=== PATIENT | male | born 1960 | race African-American/Black ===

== ENCOUNTER 2022-03-15 03:13 | Inpatient (IN) | payer OTHER ==
[2022-03-15 04:27] LABS: INR 1.28 (0.83-1.09); PROTHROMBIN TIME (PATIENT) 14.7 SEC (9.7-13.0)
[2022-03-15 04:33] LABS: BLOOD UREA NITROGEN 38.6 mg/dL (7-18); CALCIUM 8.9 mg/dL (8.5-10.1)
[2022-03-15 04:36] LABS: CREATININE 2.2 mg/dL (0.55-1.3)
[2022-03-15 04:38] LABS: BILIRUBIN,TOTAL 0.7 mg/dL (0.2-1)
[2022-03-15 04:41] LABS: N-TERMINAL BNP 12538.4 pg/ml (5-125)
[2022-03-15] MEDS ORDERED: FUROSEMIDE 40 MG/4 ML INJECTABLE VIAL IVPUSH ONE ×2 (05:01→18:37)
[2022-03-15] MEDS ORDERED: FUROSEMIDE 40 MG/4 ML INJECTABLE VIAL ONE ×2 (05:05→19:13)
[2022-03-15 06:17] LABS: BASO % 0.6 % (0-2.0); EOS % 5.1 % (0-4.5); HEMATOCRIT 51.9 % (35.4-49); HEMOGLOBIN 17.3 GM/dL (11.7-16.9); LYMPH % 19.8 % (8-40); MCH 32.9 pg (25.7-33.7); MCHC 33.4 g/dl (32.0-35.9); MEAN CELL VOLUME 98.6 fl (80-96); MEAN PLT VOLUME 10.1 fl (7.5-11.1); MONO % 8.4 % (3.8-10.2); NEUT % 66.1 % (42.8-82.8); PLATELET COUNT 236 10^3/uL (134-434); RBC 5.27 M/mm3 (4.00-5.60); WHITE BLOOD COUNT 7.1 K/mm3 (4.0-10.0)
[2022-03-15] MEDS ORDERED: NIFEdipine E.R. 30 MG TABLET PO ONE ×2 (08:28→09:09)
[2022-03-15] MEDS ORDERED: LISINOPRIL 5 MG TABLET PO ONE (08:29)
[2022-03-15] MEDS ORDERED: LISINOPRIL 5 MG TABLET ONE (09:09)
[2022-03-15] MEDS ORDERED: ALBUTEROL SO4 HFA INHALER IH PRN (10:20)
[2022-03-15] MEDS: APIXABAN 5 MG TABLET PO SCH ×2 (11:32→22:07)
[2022-03-15] MEDS: METOPROLOL TARTRATE 50 MG TABLET (FP) PO SCH ×2 (11:32→22:07)
[2022-03-15] MEDS ORDERED: METOPROLOL TARTRATE 50 MG TABLET (FP) ONE ×2 (11:33→22:04)
[2022-03-15] MEDS ORDERED: APIXABAN 5 MG TABLET ONE ×2 (11:33→22:03)
[2022-03-15] MEDS: TIOTROPIUM BROMIDE 2.5 MCG (SPIRIVA) RESPIMAT INHALER IH SCH (11:42)
[2022-03-16] MEDS ORDERED: FUROSEMIDE 40 MG/4 ML INJECTABLE VIAL ONE (06:05)
[2022-03-16 07:57] LABS: ALBUMIN 3.7 g/dl (3.4-5.0); BLOOD UREA NITROGEN 41.2 mg/dL (7-18); CALCIUM 8.6 mg/dL (8.5-10.1); MAGNESIUM 2.2 mg/dL (1.8-2.4)
[2022-03-16 08:00] LABS: CREATININE 2.2 mg/dL (0.55-1.3)
[2022-03-16 08:02] LABS: TOT PROT 6.4 g/dl (6.4-8.2)
[2022-03-16 09:09] LABS: BASO % 0.7 % (0-2.0); EOS % 2.8 % (0-4.5); HEMATOCRIT 52.7 % (35.4-49); HEMOGLOBIN 17.2 GM/dL (11.7-16.9); LYMPH % 18.2 % (8-40); MCH 32.4 pg (25.7-33.7); MCHC 32.7 g/dl (32.0-35.9); MEAN PLT VOLUME 9.8 fl (7.5-11.1); MONO % 8.2 % (3.8-10.2); NEUT % 70.1 % (42.8-82.8); PLATELET COUNT 257 10^3/uL (134-434); RBC 5.32 M/mm3 (4.00-5.60); RDW 16.7 % (11.9-15.9); WHITE BLOOD COUNT 7.8 K/mm3 (4.0-10.0)
[2022-03-16] MEDS ORDERED: METOPROLOL TARTRATE 50 MG TABLET (FP) ONE (09:47)
[2022-03-16] MEDS ORDERED: APIXABAN 5 MG TABLET ONE (09:47)
[2022-03-16] MEDS ORDERED: NIFEdipine E.R 60 MG TABLET PO ONE (09:47)
[2022-03-16] MEDS ORDERED: LISINOPRIL 10 MG TABLET PO SCH (10:00)
[2022-03-16] MEDS ORDERED: FUROSEMIDE 40 MG/4 ML INJECTABLE VIAL IVPUSH SCH (10:00)
[2022-03-16] MEDS ORDERED: NIFEdipine E.R. 30 MG TABLET PO SCH (10:00)
[2022-03-16] MEDS: NIFEdipine E.R 60 MG TABLET PO SCH (10:02)
[2022-03-16] MEDS: APIXABAN 5 MG TABLET PO SCH ×2 (10:02→23:39)
[2022-03-16] MEDS: METOPROLOL TARTRATE 50 MG TABLET (FP) PO SCH (10:02)
[2022-03-16] MEDS ORDERED: METOPROLOL TARTRATE 25 MG TABLET (FP) PO SCH (22:00)
[2022-03-16] MEDS: FUROSEMIDE 40 MG/4 ML INJECTABLE VIAL IVPUSH SCH (23:45)
[2022-03-17 01:10] LABS: URINE APPEARANCE CLEAR; URINE BILIRUBIN NEGATIVE (NEGATIVE); URINE COLOR YELLOW; URINE GLUCOSE (UA) NEGATIVE (NEGATIVE); URINE KETONE NEGATIVE (NEGATIVE); URINE LEUK ESTERASE NEGATIVE (NEGATIVE); URINE NITRITE NEGATIVE (NEGATIVE); URINE PROTEIN TRACE (NEGATIVE)
[2022-03-17] MEDS: APIXABAN 5 MG TABLET PO SCH ×2 (11:23→21:11)
[2022-03-17] MEDS: NIFEdipine E.R 60 MG TABLET PO SCH (11:23)
[2022-03-17 11:36] VITALS: BMI 26.9
[2022-03-17] MEDS: TIOTROPIUM BROMIDE 2.5 MCG (SPIRIVA) RESPIMAT INHALER IH SCH ×2 (13:11→15:17)
[2022-03-17] MEDS: FUROSEMIDE 40 MG/4 ML INJECTABLE VIAL IVPUSH SCH ×2 (14:01→15:17)
[2022-03-17] MEDS ORDERED: ALBUTEROL SO4 HFA INHALER IH PRN (15:36)
[2022-03-17 16:37] LABS: METHADONE, UR NEGATIVE (NEGATIVE); OPIATES, URI NEGATIVE (NEGATIVE)
[2022-03-17 16:38] LABS: PHENCYCLIDINE,URINE NEGATIVE (NEGATIVE)
[2022-03-17 16:51] LABS: COCAINE, UR POSITIVE (NEGATIVE); URINE AMPHETAMINES NEGATIVE (NEGATIVE); URINE BARBITURATES NEGATIVE (NEGATIVE); URINE BENZODIAZEPINES NEGATIVE (NEGATIVE)
[2022-03-17] MEDS: ATORVASTATIN CA 40 MG TABLET (FP) PO SCH (21:11)
[2022-03-17] MEDS: CARVEDILOL 3.125 MG TABLET (FP) PO SCH (21:11)
[2022-03-17] MEDS ORDERED: CARVEDILOL 12.5 MG TABLET (FP) PO SCH ×2 (22:00)
[2022-03-18] MEDS ORDERED: FUROSEMIDE 40 MG TABLET (FP) PO SCH (06:00)
[2022-03-18] MEDS ORDERED: FUROSEMIDE 40 MG/4 ML INJECTABLE VIAL IVPUSH SCH (06:00)
[2022-03-18 09:32] LABS: HEMATOCRIT 52.6 % (35.4-49); HEMOGLOBIN 17.5 GM/dL (11.7-16.9); MCH 32.4 pg (25.7-33.7); MCHC 33.2 g/dl (32.0-35.9); MEAN CELL VOLUME 97.7 fl (80-96); MEAN PLT VOLUME 9.9 fl (7.5-11.1); PLATELET COUNT 258 10^3/uL (134-434); RBC 5.38 M/mm3 (4.00-5.60); WHITE BLOOD COUNT 6.7 K/mm3 (4.0-10.0)
[2022-03-18] MEDS ORDERED: TIOTROPIUM BROMIDE 2.5 MCG (SPIRIVA) RESPIMAT INHALER IH SCH (10:00)
[2022-03-18] MEDS: NIFEdipine E.R 60 MG TABLET PO SCH (10:11)
[2022-03-18] MEDS: APIXABAN 5 MG TABLET PO SCH ×2 (10:11→21:21)
[2022-03-18] MEDS: CARVEDILOL 3.125 MG TABLET (FP) PO SCH ×2 (10:11→21:20)
[2022-03-18 10:17] LABS: ALBUMIN 3.5 g/dl (3.4-5.0); BLOOD UREA NITROGEN 36.6 mg/dL (7-18); CALCIUM 8.8 mg/dL (8.5-10.1); MAGNESIUM 2.1 mg/dL (1.8-2.4)
[2022-03-18] MEDS: BUDESONIDE/FORMETEROL FUMARATE 80/4.5 mcg INHALER IH SCH ×2 (10:18→21:21)
[2022-03-18 10:20] LABS: CREATININE 1.9 mg/dL (0.55-1.3)
[2022-03-18 10:21] LABS: TOT PROT 6.2 g/dl (6.4-8.2)
[2022-03-18 10:22] LABS: BILIRUBIN,TOTAL 1.3 mg/dL (0.2-1)
[2022-03-18 10:25] VITALS: RESP 18
[2022-03-18] MEDS: FUROSEMIDE 40 MG/4 ML INJECTABLE VIAL IVPUSH SCH (15:17)
[2022-03-18] MEDS: ATORVASTATIN CA 40 MG TABLET (FP) PO SCH (21:21)
[2022-03-19] MEDS: FUROSEMIDE 40 MG/4 ML INJECTABLE VIAL IVPUSH SCH ×2 (05:06→15:06)
[2022-03-19 10:28] LABS: ALBUMIN 3.4 g/dl (3.4-5.0); BLOOD UREA NITROGEN 34.6 mg/dL (7-18); CALCIUM 8.5 mg/dL (8.5-10.1)
[2022-03-19 10:32] LABS: CREATININE 1.7 mg/dL (0.55-1.3)
[2022-03-19 10:33] LABS: BILIRUBIN,TOTAL 1.1 mg/dL (0.2-1); TOT PROT 6.2 g/dl (6.4-8.2)
[2022-03-19 10:37] LABS: N-TERMINAL BNP 6342.5 pg/ml (5-125)
[2022-03-19] MEDS: CARVEDILOL 3.125 MG TABLET (FP) PO SCH (10:47)
[2022-03-19] MEDS: NIFEdipine E.R 60 MG TABLET PO SCH (10:47)
[2022-03-19] MEDS: APIXABAN 5 MG TABLET PO SCH (10:47)
[2022-03-19] MEDS: BUDESONIDE/FORMETEROL FUMARATE 80/4.5 mcg INHALER IH SCH (10:48)
[2022-03-19 15:03] VITALS: BP 114/73; PULSE 52; TEMP 98.1
== END 2022-03-19 17:07 | disposition other institution (70) | DRG 194 ==
LOC: JER 03:13 → JERBED 05:40 → J4W 03-16 16:20 → J5S 03-17 14:22
PROVIDERS: ADMIT Internal Medicine; ATTEND Internal Medicine
DX: I13.0 Hypertensive heart and chronic kidney disease with heart failure and stage 1 through stage 4 chronic kidney disease, or unspecified chronic kidney disease (principal); N17.9 Acute kidney failure, unspecified; N18.30 Chronic kidney disease, stage 3 unspecified; E78.5 Hyperlipidemia, unspecified; F11.90 Opioid use, unspecified, uncomplicated; F12.90 Cannabis use, unspecified, uncomplicated; F17.200 Nicotine dependence, unspecified, uncomplicated; F32.A Depression, unspecified; I16.0 Hypertensive urgency; I48.21 Permanent atrial fibrillation; J44.9 Chronic obstructive pulmonary disease, unspecified; R80.9 Proteinuria, unspecified; Z59.00 Homelessness unspecified; I50.23 Acute on chronic systolic (congestive) heart failure; Z91.14 Patient's other noncompliance with medication regimen
CPT/HCPCS: 0241U-QW; 36415; 71045-TC-FY; 76775-TC; 80053; 80307; 81003; 83735; 83880; 84100; 84439; 84443; 84484; 85025; 85027; 85379; 85610; 87811; 93005; 93010; 93306-TC; 94010; 99285-25; C9803-CS; U0003; U0005

== ENCOUNTER 2022-03-19 18:14 | Inpatient (IN) | payer OTHER ==
[2022-03-19 19:14] VITALS: BMI 26.6
[2022-03-19] MEDS ORDERED: ALBUTEROL SO4 HFA INHALER IH PRN (20:03)
[2022-03-19] MEDS ORDERED: guaiFENesin 200 MG/10 ML 10 ML UNIT-DOSE CUPS PO PRN (20:05)
[2022-03-19] MEDS ORDERED: ACETAMINOPHEN 325 MG TABLET (FP) PO PRN (20:05)
[2022-03-19] MEDS ORDERED: POLYETHYLENE GLYCOL (HEALTHYLAX) 3350 17 GM PACKET PO PRN (20:05)
[2022-03-19] MEDS ORDERED: LOPERAMIDE HCL 2 MG CAPSULE PO PRN (20:05)
[2022-03-19] MEDS ORDERED: MAGNESIUM HYDROX 2400MG/30ML ORAL SUSPENSION 30 ML CUP PO PRN (20:05)
[2022-03-19] MEDS ORDERED: MAG HYDROX/AL HYDROX/SIMETH 30 ML UNIT-DOSE CUP PO PRN (20:05)
[2022-03-19] MEDS ORDERED: BENZOCAINE/MENTHOL (CHLORASEPTIC ) LOZENGE MM PRN (20:05)
[2022-03-19] MEDS: THIAMINE HCL 100 MG TABLET (FP) PO SCH (21:37)
[2022-03-19] MEDS: MELATONIN 5 MG TABLETS PO SCH (21:37)
[2022-03-19] MEDS: CARVEDILOL 3.125 MG TABLET (FP) PO SCH (21:38)
[2022-03-19] MEDS: APIXABAN 5 MG TABLET PO SCH (21:38)
[2022-03-19] MEDS: BUDESONIDE/FORMETEROL FUMARATE 80/4.5 mcg INHALER IH SCH (21:38)
[2022-03-19] MEDS: FUROSEMIDE 40 MG TABLET (FP) PO SCH (21:38)
[2022-03-19] MEDS: ATORVASTATIN CA 40 MG TABLET (FP) PO SCH (21:38)
[2022-03-20] MEDS: BUDESONIDE/FORMETEROL FUMARATE 80/4.5 mcg INHALER IH SCH ×2 (09:40→21:21)
[2022-03-20] MEDS: NIFEdipine E.R. 30 MG TABLET PO SCH (09:41)
[2022-03-20] MEDS: APIXABAN 5 MG TABLET PO SCH ×2 (09:41→21:20)
[2022-03-20] MEDS: PRENATAL VITAMINS W/ FOLIC ACID TABLET (FP) PO SCH (09:41)
[2022-03-20] MEDS: FUROSEMIDE 40 MG TABLET (FP) PO SCH ×2 (09:41→21:20)
[2022-03-20] MEDS: CARVEDILOL 3.125 MG TABLET (FP) PO SCH ×2 (09:41→21:20)
[2022-03-20] MEDS: LISINOPRIL 5 MG TABLET PO SCH (09:41)
[2022-03-20 12:02] LABS: SYPHILIS W/ RPR CONF NON-REACTIVE (NONREACTIVE)
[2022-03-20] MEDS: THIAMINE HCL 100 MG TABLET (FP) PO SCH (21:20)
[2022-03-20] MEDS: ATORVASTATIN CA 40 MG TABLET (FP) PO SCH (21:20)
[2022-03-20] MEDS: MELATONIN 5 MG TABLETS PO SCH (21:20)
[2022-03-21] MEDS: APIXABAN 5 MG TABLET PO SCH ×2 (09:29→21:16)
[2022-03-21] MEDS: FUROSEMIDE 40 MG TABLET (FP) PO SCH ×2 (09:29→21:16)
[2022-03-21] MEDS: BUDESONIDE/FORMETEROL FUMARATE 80/4.5 mcg INHALER IH SCH ×2 (09:29→21:15)
[2022-03-21] MEDS: PRENATAL VITAMINS W/ FOLIC ACID TABLET (FP) PO SCH (09:29)
[2022-03-21] MEDS: LISINOPRIL 5 MG TABLET PO SCH (09:30)
[2022-03-21] MEDS: CARVEDILOL 3.125 MG TABLET (FP) PO SCH ×2 (09:30→21:16)
[2022-03-21] MEDS: NIFEdipine E.R. 30 MG TABLET PO SCH (09:30)
[2022-03-21] MEDS ORDERED: NICOTINE POLACRILEX 2 MG GUM BUC PRN (15:04)
[2022-03-21] MEDS: NICOTINE 10 MG CARTRIDGE (INHALER) IH PRN (15:23)
[2022-03-21] MEDS: THIAMINE HCL 100 MG TABLET (FP) PO SCH (21:16)
[2022-03-21] MEDS: ATORVASTATIN CA 40 MG TABLET (FP) PO SCH (21:16)
[2022-03-21] MEDS: MELATONIN 5 MG TABLETS PO SCH (21:16)
[2022-03-22] MEDS: NIFEdipine E.R. 30 MG TABLET PO SCH (09:51)
[2022-03-22] MEDS: FUROSEMIDE 40 MG TABLET (FP) PO SCH ×2 (09:51→21:17)
[2022-03-22] MEDS: PRENATAL VITAMINS W/ FOLIC ACID TABLET (FP) PO SCH (09:51)
[2022-03-22] MEDS: CARVEDILOL 3.125 MG TABLET (FP) PO SCH ×2 (09:51→21:16)
[2022-03-22] MEDS: APIXABAN 5 MG TABLET PO SCH ×2 (09:51→21:16)
[2022-03-22] MEDS: BUDESONIDE/FORMETEROL FUMARATE 80/4.5 mcg INHALER IH SCH ×2 (09:51→21:17)
[2022-03-22] MEDS: LISINOPRIL 5 MG TABLET PO SCH (09:51)
[2022-03-22] MEDS: ATORVASTATIN CA 40 MG TABLET (FP) PO SCH (21:16)
[2022-03-22] MEDS: THIAMINE HCL 100 MG TABLET (FP) PO SCH (21:17)
[2022-03-22] MEDS: MELATONIN 5 MG TABLETS PO SCH (21:17)
[2022-03-23] MEDS: NIFEdipine E.R. 30 MG TABLET PO SCH (10:12)
[2022-03-23] MEDS: BUDESONIDE/FORMETEROL FUMARATE 80/4.5 mcg INHALER IH SCH ×2 (10:12→21:11)
[2022-03-23] MEDS: PRENATAL VITAMINS W/ FOLIC ACID TABLET (FP) PO SCH (10:12)
[2022-03-23] MEDS: FUROSEMIDE 40 MG TABLET (FP) PO SCH ×2 (10:12→21:10)
[2022-03-23] MEDS: CARVEDILOL 3.125 MG TABLET (FP) PO SCH ×2 (10:12→21:10)
[2022-03-23] MEDS: APIXABAN 5 MG TABLET PO SCH ×2 (10:12→21:11)
[2022-03-23] MEDS: LISINOPRIL 5 MG TABLET PO SCH (10:12)
[2022-03-23] MEDS: ATORVASTATIN CA 40 MG TABLET (FP) PO SCH (21:10)
[2022-03-23] MEDS: THIAMINE HCL 100 MG TABLET (FP) PO SCH (21:11)
[2022-03-23] MEDS: MELATONIN 5 MG TABLETS PO SCH (21:11)
[2022-03-24] MEDS: LISINOPRIL 5 MG TABLET PO SCH (10:02)
[2022-03-24] MEDS: NIFEdipine E.R. 30 MG TABLET PO SCH (10:02)
[2022-03-24] MEDS: PRENATAL VITAMINS W/ FOLIC ACID TABLET (FP) PO SCH (10:02)
[2022-03-24] MEDS: CARVEDILOL 3.125 MG TABLET (FP) PO SCH ×2 (10:02→21:13)
[2022-03-24] MEDS: FUROSEMIDE 40 MG TABLET (FP) PO SCH ×2 (10:02→21:13)
[2022-03-24] MEDS: APIXABAN 5 MG TABLET PO SCH ×2 (10:02→21:13)
[2022-03-24] MEDS: BUDESONIDE/FORMETEROL FUMARATE 80/4.5 mcg INHALER IH SCH ×2 (10:03→21:15)
[2022-03-24] MEDS: NICOTINE 10 MG CARTRIDGE (INHALER) IH PRN (11:46)
[2022-03-24] MEDS: ATORVASTATIN CA 40 MG TABLET (FP) PO SCH (21:13)
[2022-03-24] MEDS: THIAMINE HCL 100 MG TABLET (FP) PO SCH (21:13)
[2022-03-24] MEDS: SUVOREXANT 10 MG TABLET PO PRN (21:14)
[2022-03-25] MEDS: PRENATAL VITAMINS W/ FOLIC ACID TABLET (FP) PO SCH (10:07)
[2022-03-25] MEDS: BUDESONIDE/FORMETEROL FUMARATE 80/4.5 mcg INHALER IH SCH ×2 (10:07→21:14)
[2022-03-25] MEDS: LISINOPRIL 5 MG TABLET PO SCH (10:08)
[2022-03-25] MEDS: CARVEDILOL 3.125 MG TABLET (FP) PO SCH ×2 (10:08→21:13)
[2022-03-25] MEDS: NIFEdipine E.R. 30 MG TABLET PO SCH (10:08)
[2022-03-25] MEDS: APIXABAN 5 MG TABLET PO SCH ×2 (10:09→21:13)
[2022-03-25] MEDS: FUROSEMIDE 40 MG TABLET (FP) PO SCH ×2 (10:09→21:13)
[2022-03-25] MEDS: THIAMINE HCL 100 MG TABLET (FP) PO SCH (21:13)
[2022-03-25] MEDS: ATORVASTATIN CA 40 MG TABLET (FP) PO SCH (21:13)
[2022-03-25] MEDS: SUVOREXANT 10 MG TABLET PO PRN (21:14)
[2022-03-25] MEDS: BACLOFEN 10 MG TABLET (FP) PO PRN (21:15)
[2022-03-26] MEDS: NIFEdipine E.R. 30 MG TABLET PO SCH (10:03)
[2022-03-26] MEDS: BUDESONIDE/FORMETEROL FUMARATE 80/4.5 mcg INHALER IH SCH ×2 (10:03→21:21)
[2022-03-26] MEDS: PRENATAL VITAMINS W/ FOLIC ACID TABLET (FP) PO SCH (10:04)
[2022-03-26] MEDS: APIXABAN 5 MG TABLET PO SCH ×2 (10:04→21:19)
[2022-03-26] MEDS: FUROSEMIDE 40 MG TABLET (FP) PO SCH ×2 (10:04→21:19)
[2022-03-26] MEDS: LISINOPRIL 5 MG TABLET PO SCH (10:04)
[2022-03-26] MEDS: CARVEDILOL 3.125 MG TABLET (FP) PO SCH ×2 (10:04→21:19)
[2022-03-26] MEDS: NICOTINE 10 MG CARTRIDGE (INHALER) IH PRN (18:09)
[2022-03-26] MEDS: THIAMINE HCL 100 MG TABLET (FP) PO SCH (21:19)
[2022-03-26] MEDS: ATORVASTATIN CA 40 MG TABLET (FP) PO SCH (21:19)
[2022-03-26] MEDS: SUVOREXANT 10 MG TABLET PO PRN (22:39)
[2022-03-27] MEDS: FUROSEMIDE 40 MG TABLET (FP) PO SCH ×2 (09:08→21:19)
[2022-03-27] MEDS: PRENATAL VITAMINS W/ FOLIC ACID TABLET (FP) PO SCH (09:08)
[2022-03-27] MEDS: LISINOPRIL 5 MG TABLET PO SCH (09:08)
[2022-03-27] MEDS: CARVEDILOL 3.125 MG TABLET (FP) PO SCH ×2 (09:08→21:19)
[2022-03-27] MEDS: NIFEdipine E.R. 30 MG TABLET PO SCH (09:08)
[2022-03-27] MEDS: BUDESONIDE/FORMETEROL FUMARATE 80/4.5 mcg INHALER IH SCH ×2 (09:09→21:20)
[2022-03-27] MEDS: APIXABAN 5 MG TABLET PO SCH ×2 (09:09→21:19)
[2022-03-27] MEDS: NICOTINE 10 MG CARTRIDGE (INHALER) IH PRN (09:11)
[2022-03-27] MEDS: THIAMINE HCL 100 MG TABLET (FP) PO SCH (21:19)
[2022-03-27] MEDS: ATORVASTATIN CA 40 MG TABLET (FP) PO SCH (21:19)
[2022-03-27] MEDS: BACLOFEN 10 MG TABLET (FP) PO PRN (21:19)
[2022-03-27] MEDS: SUVOREXANT 10 MG TABLET PO PRN (22:29)
[2022-03-28] MEDS: BUDESONIDE/FORMETEROL FUMARATE 80/4.5 mcg INHALER IH SCH ×2 (09:39→21:30)
[2022-03-28] MEDS: BACLOFEN 10 MG TABLET (FP) PO PRN (09:39)
[2022-03-28] MEDS: PRENATAL VITAMINS W/ FOLIC ACID TABLET (FP) PO SCH (09:39)
[2022-03-28] MEDS: FUROSEMIDE 40 MG TABLET (FP) PO SCH ×2 (09:39→21:31)
[2022-03-28] MEDS: APIXABAN 5 MG TABLET PO SCH ×2 (09:39→21:33)
[2022-03-28] MEDS: NIFEdipine E.R. 30 MG TABLET PO SCH (09:39)
[2022-03-28] MEDS: CARVEDILOL 3.125 MG TABLET (FP) PO SCH ×2 (09:39→21:30)
[2022-03-28] MEDS: LISINOPRIL 5 MG TABLET PO SCH (09:39)
[2022-03-28] MEDS: ATORVASTATIN CA 40 MG TABLET (FP) PO SCH (21:31)
[2022-03-28] MEDS: THIAMINE HCL 100 MG TABLET (FP) PO SCH (21:31)
[2022-03-28] MEDS: SUVOREXANT 10 MG TABLET PO PRN (22:28)
[2022-03-29] MEDS: LISINOPRIL 5 MG TABLET PO SCH (10:14)
[2022-03-29] MEDS: FUROSEMIDE 40 MG TABLET (FP) PO SCH ×2 (10:14→21:09)
[2022-03-29] MEDS: APIXABAN 5 MG TABLET PO SCH ×2 (10:14→21:09)
[2022-03-29] MEDS: NIFEdipine E.R. 30 MG TABLET PO SCH (10:14)
[2022-03-29] MEDS: CARVEDILOL 3.125 MG TABLET (FP) PO SCH ×2 (10:14→21:09)
[2022-03-29] MEDS: PRENATAL VITAMINS W/ FOLIC ACID TABLET (FP) PO SCH (10:14)
[2022-03-29] MEDS: BUDESONIDE/FORMETEROL FUMARATE 80/4.5 mcg INHALER IH SCH ×2 (10:15→21:09)
[2022-03-29] MEDS: NICOTINE 10 MG CARTRIDGE (INHALER) IH PRN (10:38)
[2022-03-29] MEDS: BACLOFEN 10 MG TABLET (FP) PO PRN (21:08)
[2022-03-29] MEDS: THIAMINE HCL 100 MG TABLET (FP) PO SCH (21:08)
[2022-03-29] MEDS: ATORVASTATIN CA 40 MG TABLET (FP) PO SCH (21:09)
[2022-03-29] MEDS: SUVOREXANT 10 MG TABLET PO PRN (22:15)
[2022-03-30] MEDS: NIFEdipine E.R. 30 MG TABLET PO SCH (10:10)
[2022-03-30] MEDS: FUROSEMIDE 40 MG TABLET (FP) PO SCH ×2 (10:10→21:23)
[2022-03-30] MEDS: CARVEDILOL 3.125 MG TABLET (FP) PO SCH ×2 (10:10→21:23)
[2022-03-30] MEDS: PRENATAL VITAMINS W/ FOLIC ACID TABLET (FP) PO SCH (10:10)
[2022-03-30] MEDS: LISINOPRIL 5 MG TABLET PO SCH (10:10)
[2022-03-30] MEDS: APIXABAN 5 MG TABLET PO SCH ×2 (10:10→21:23)
[2022-03-30] MEDS: BUDESONIDE/FORMETEROL FUMARATE 80/4.5 mcg INHALER IH SCH ×2 (10:11→21:24)
[2022-03-30] MEDS: NICOTINE 10 MG CARTRIDGE (INHALER) IH PRN ×2 (10:12→18:26)
[2022-03-30] MEDS: THIAMINE HCL 100 MG TABLET (FP) PO SCH (21:22)
[2022-03-30] MEDS: ATORVASTATIN CA 40 MG TABLET (FP) PO SCH (21:23)
[2022-03-30] MEDS: BACLOFEN 10 MG TABLET (FP) PO PRN (21:23)
[2022-03-30] MEDS: SUVOREXANT 10 MG TABLET PO PRN (22:57)
[2022-03-31] MEDS: NIFEdipine E.R. 30 MG TABLET PO SCH (09:51)
[2022-03-31] MEDS: PRENATAL VITAMINS W/ FOLIC ACID TABLET (FP) PO SCH (09:51)
[2022-03-31] MEDS: LISINOPRIL 5 MG TABLET PO SCH (09:51)
[2022-03-31] MEDS: CARVEDILOL 3.125 MG TABLET (FP) PO SCH ×2 (09:52→21:43)
[2022-03-31] MEDS: APIXABAN 5 MG TABLET PO SCH ×2 (09:52→21:43)
[2022-03-31] MEDS: FUROSEMIDE 40 MG TABLET (FP) PO SCH ×2 (09:52→21:43)
[2022-03-31] MEDS: BUDESONIDE/FORMETEROL FUMARATE 80/4.5 mcg INHALER IH SCH ×2 (09:53→21:43)
[2022-03-31 10:02] VITALS: RESP 18
[2022-03-31] MEDS: THIAMINE HCL 100 MG TABLET (FP) PO SCH (21:43)
[2022-03-31] MEDS: ATORVASTATIN CA 40 MG TABLET (FP) PO SCH (21:43)
[2022-03-31] MEDS: BACLOFEN 10 MG TABLET (FP) PO PRN (21:45)
[2022-03-31] MEDS ORDERED: SUVOREXANT 10 MG TABLET PO PRN (22:00)
[2022-04-01] MEDS: BUDESONIDE/FORMETEROL FUMARATE 80/4.5 mcg INHALER IH SCH ×2 (09:54→21:14)
[2022-04-01] MEDS: PRENATAL VITAMINS W/ FOLIC ACID TABLET (FP) PO SCH (09:55)
[2022-04-01] MEDS: NIFEdipine E.R. 30 MG TABLET PO SCH (09:55)
[2022-04-01] MEDS: LISINOPRIL 5 MG TABLET PO SCH (09:55)
[2022-04-01] MEDS: APIXABAN 5 MG TABLET PO SCH ×2 (09:55→21:14)
[2022-04-01] MEDS: CARVEDILOL 3.125 MG TABLET (FP) PO SCH ×2 (09:55→21:14)
[2022-04-01] MEDS: FUROSEMIDE 40 MG TABLET (FP) PO SCH ×2 (09:55→21:14)
[2022-04-01] MEDS: ATORVASTATIN CA 40 MG TABLET (FP) PO SCH (21:14)
[2022-04-01] MEDS: THIAMINE HCL 100 MG TABLET (FP) PO SCH (21:15)
[2022-04-02 07:04] VITALS: BP 117/80; PULSE 86; TEMP 97.5
[2022-04-02] MEDS: PRENATAL VITAMINS W/ FOLIC ACID TABLET (FP) PO SCH (09:29)
[2022-04-02] MEDS: NIFEdipine E.R. 30 MG TABLET PO SCH (09:29)
[2022-04-02] MEDS: CARVEDILOL 3.125 MG TABLET (FP) PO SCH (09:29)
[2022-04-02] MEDS: FUROSEMIDE 40 MG TABLET (FP) PO SCH (09:29)
[2022-04-02] MEDS: LISINOPRIL 5 MG TABLET PO SCH (09:29)
[2022-04-02] MEDS: APIXABAN 5 MG TABLET PO SCH (09:29)
[2022-04-02] MEDS: BUDESONIDE/FORMETEROL FUMARATE 80/4.5 mcg INHALER IH SCH (09:30)
== END 2022-04-02 09:46 | disposition home or self-care (01) | DRG 772 ==
LOC: YASAS 18:14 → Y3W 20:07
PROVIDERS: ADMIT Allergy & Immunology; ATTEND Family Medicine
PROC: HZ42ZZZ Group Counseling for Substance Abuse Treatment, Cognitive-Behavioral (ICD-10-PCS; principal; 2022-03-19)
DX: F14.20 Cocaine dependence, uncomplicated (principal); F12.20 Cannabis dependence, uncomplicated; F19.24 Other psychoactive substance dependence with psychoactive substance-induced mood disorder; J41.0 Simple chronic bronchitis; I48.91 Unspecified atrial fibrillation; N17.8 Other acute kidney failure; I13.0 Hypertensive heart and chronic kidney disease with heart failure and stage 1 through stage 4 chronic kidney disease, or unspecified chronic kidney disease; N18.30 Chronic kidney disease, stage 3 unspecified; I50.89 Other heart failure; Z79.01 Long term (current) use of anticoagulants; Z87.891 Personal history of nicotine dependence; Z59.00 Homelessness unspecified
CPT/HCPCS: 36415; 86780; 86803; J0475